=== PATIENT | female | born 1990 | race Caucasian/White ===

== ENCOUNTER 2016-03-28 17:09 | Emergency (ER) | payer OTHER, SELFPAY ==
[2016-03-28 18:25] LABS: BASO # 0.1 K/mm3 (0.0-0.2); BASO % 0.9 % (0.0-1.0); EOS # 0.1 K/mm3 (0.0-0.50); EOS % 1.2 % (0.0-3.0); LARGE UNSTAINED CELL # 0.1 K/mm3 (0.0-0.4); LARGE UNSTAINED CELL % 1.3 % (0.0-4.0); LYMPH % 20.2 % (24.0-44.0); MEAN CORPUSCULAR HEMOGLOBIN 26.4 pg (27.0-33.0); MEAN CORPUSCULAR HGB CONC 32.3 g/dl (32.0-36.5); MEAN CORPUSCULAR VOLUME 81.6 fl (80.0-96.0); MONO # 0.5 K/mm3 (0.0-0.8); NEUTROPHILS # 6.6 K/mm3 (1.8-7.7); NEUTROPHILS % 71.4 % (36.0-66.0); PLATELET COUNT, AUTOMATED 295 k/mm3 (150-450); RED CELL DISTRIBUTION WIDTH 15.1 % (11.5-14.5); WHITE BLOOD COUNT 9.2 K/mm3 (4.0-10.0)
[2016-03-28 18:44] LABS: ALBUMIN 4.1 GM/DL (3.2-5.2); ALBUMIN/GLOBULIN RATIO 1.03 (1.00-1.93); ALKALINE PHOSPHATASE 58 U/L (45-117); ALT/SGPT 17 U/L (12-78); AMYLASE 25 U/L (25-115); ANION GAP 9 MEQ/L (8-16); AST/SGOT 14 U/L (15-37); BILIRUBIN,DIRECT < 0.1 MG/DL (0.0-0.2); BILIRUBIN,TOTAL 0.2 MG/DL (0.2-1.0); BLOOD UREA NITROGEN 10 MG/DL (7-18); CALCIUM LEVEL 8.7 MG/DL (8.5-10.1); CARBON DIOXIDE LEVEL 27 MEQ/L (21-32); CHLORIDE LEVEL 108 MEQ/L (98-107); CREATININE FOR GFR 0.65 MG/DL (0.55-1.02); GLOMERULAR FILTRATION RATE > 60.0 (>60); GLUCOSE, FASTING 109 MG/DL (70-105); POTASSIUM SERUM 3.8 MEQ/L (3.5-5.1); SODIUM LEVEL 144 MEQ/L (136-145); TOTAL PROTEIN 8.1 GM/DL (6.4-8.2)
--- NOTE | 2016-03-28 19:00 | REPUSA ---
CLINICAL HISTORY: BILIARY COLIC TECHNIQUE: Realtime sonographic images were obtained in multiple projections. COMMENTS: The liver is of uniform echo texture without evidence of mass or defect. There is no intra or extrahe patic biliary ductal dilatation. The common bile duct measures up to 4 mm. The gallbladder isunderdis tended (patient ate at 4 4pm), but without evidence of calculi. The gallbladder wall is not thickened and there is no pericholecystic fluid. There is no abdominal ascites. The pancreas is not well seen. The right kidney measures 12.4 cm and is free of masses or hydronephro sis. The visualized portions of abdominal aorta present no abnormalities. IMPRESSION: No evidence of acute pathology.. Thank you for your kind referral of this patient.
--- NOTE | 2016-03-28 19:27 | EDDOCDS ---
Physician Documentation [facility] Name: Gisela Rice Age: 25 yrs Sex: Female : 1990 Arrival Date: 03/28/2016 Time: 17:09 Bed TR8 Private MD: Trino Goddard Disposition: 03/28/16 19:13 Discharged to Home/Self Care. Impression: Right upper quadrant abdominal tenderness. - Condition is Stable. - Discharge Instructions: Chest Wall Pain, [id number], Abdominal Pain, Adult, [id number]. - Prescriptions for etodolac 200 mg Oral Capsule - take 1 capsule by ORAL route 3 times per day; 30 capsule. - Medication Reconciliation, Local Pharmacy Hours form. - Follow up: Trino Goddard; When: 1 - 2 days; Reason: Further diagnostic work-up, Recheck today's complaints, Continuance of care. - Problem is new. - Symptoms are unchanged. Historical: - Allergies: Augmentin (Rash); - Home Meds: 1. none - PMHx: Heart Murmur; - PSHx: ; - Social history: Smoking status: Patient states was never smoker of tobacco. No barriers to communication noted, The patient speaks fluent Spanish. - Family history: Not pertinent. - : The pt / caregiver states he / she is not on anticoagulants. Home medication list is obtained from the patient. - Exposure Risk Screening:: None identified. 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 6 in. (167.64 cm) (R); 19:23 BP 114 / 62 LA Sitting (auto/reg); Pulse 84 MON; Resp 18 S; Temp 99.2(TE); Pulse Ox 98% cln on R/A; Pain 7/10; 17:11 Body Mass Index 28.25 (79.38 kg, 167.64 cm) dd6 MDM: 17:21 ECG WITH READING ER PHYS+CARDIAG ordered. EDMS 18:02 Amylase Ordered. EDMS 18:02 Basic Metabolic Profile Ordered. EDMS 18:02 CBC with Diff Ordered. EDMS 18:02 Lipase Ordered. EDMS 18:02 Liver Profile Ordered. EDMS 18:05 Gallbladder US Ordered. EDMS 18:05 NOTHING BY MOUTH+DIET ordered. EDMS 18:46 Basic Metabolic Profile Reviewed. btw 18:46 CBC with Diff Reviewed. btw 18:46 Liver Profile Reviewed. btw 18:46 Amylase Reviewed. btw 18:46 Lipase Reviewed. btw 19:26 Financial registration complete. [id number] Signatures: Dispatcher [employer] Kellen Arroyo,RN RN rs3 Imer Green PA PA Melany Pardo RN RN ms18 Bharti Botello, Reg Reg [id number] MTDD
--- NOTE | 2016-03-28 19:27 | EDDOCDS ---
Nurse's Notes [facility] Name: Gisela Rice Age: 25 yrs Sex: Female : 1990 Arrival Date: 03/28/2016 Time: 17:09 Bed TR8 Private MD: Trino Goddard Diagnosis: Right upper quadrant abdominal tenderness Presentation: 03/28 17:13 Presenting complaint: Patient states: Right side chest pain radiates to right flank for rs3 5 days. Left flank pain on and off . Dizziness mostly waking up and at the end of the day. H/o Heart murmur. has not taken any medication. worse with walking, deep breathing and relief with rest and lying on right side. Aspirin was not taken prior to arrival. Adult Sepsis Screening: The patient does not have new or worsening altered mentation. Patient's respiratory rate is less than 22. Systolic blood pressure is greater than 100. Patient has a qSOFA score of 0- Negative Sepsis Screen. Suicide/Homicide risk assessment- the patient denies having any suicidal and/or homicidal ideations and does not present with any other emotional, behavioral or mental health complaints. Status: Patient is not a coordinator of rehabilitation services or dependent. Transition of care: patient was not received from another setting of care. 17:13 Method Of Arrival: Walkin/Carried/Asstd rs3 17:13 Acuity: SRIDEVI Level 3 rs3 Triage Assessment: 17:15 General: Appears in no apparent distress. Pain: Location: chest. HIV screening NA for rs3 this visit Offered previously. Cardiovascular: Chest pain is described as Pain is 7 out of 10 on a pain scale. radiates to right to left episodes are continuous began 3 days ago. 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 none - PMHx: Heart Murmur; - PSHx: ; - Social history: Smoking status: Patient states was never smoker of tobacco. No barriers to communication noted, The patient speaks fluent Turkmen. - Family history: Not pertinent. - : The pt / caregiver states he / she is not on anticoagulants. Home medication list is obtained from the patient. - Exposure Risk Screening:: None identified. Screenin:24 Screening information is obtained from the patient. Fall risk: No risks identified. ms18 Assistance ADL's: requires no assistance with activities of daily living. Abuse/DV Screen: The patient / caregiver reports he/she is: not in a situation that causes fear, pain or injury. Nutritional screening: No deficits noted. Advance Directives: There is no living will. home support is adequate. Assessment: 18:08 General: Appears in no apparent distress, well nourished, well groomed, Behavior is jjr appropriate for age. Cardiovascular: Rhythm is regular Chest pain is located in right anterior chest wall radiates RUQ. Respiratory: No deficits noted. Derm: No deficits noted. 19:24 General: Appears in no apparent distress, comfortable, Behavior is appropriate for age, ms18 cooperative, fussy. Pain: Location: chest and left hand. Neurological: No deficits noted. Cardiovascular: Rhythm is regular. Respiratory: Airway is patent Respiratory effort is even, unlabored. Derm: Skin is pink, warm & dry. Vital Signs: 17:11 BP 135 / 82; Pulse 82; Resp 18 S; Temp 98.1(O); Pulse Ox 100% on R/A; Weight 79.38 kg dd6 (R); Height 5 ft. 6 in. (167.64 cm) (R); 19:23 BP 114 / 62 LA Sitting (auto/reg); Pulse 84 MON; Resp 18 S; Temp 99.2(TE); Pulse Ox 98% cln on R/A; Pain 7/10; 17:11 Body Mass Index 28.25 (79.38 kg, 167.64 cm) dd6 Vitals: 17:11 Log In Time: March 28, 2016 at 17:09. dd6 ED Course: 17:10 Patient visited by Linwood Coleman PCA. dd6 17:10 Patient moved to Waiting dd6 17:11 Trino Goddard is Private Physician. dd6 17:12 Patient moved to Pre RCE dd6 17:15 Triage Initiated rs3 17:21 Patient moved to PR2 / 26 ar3 17:28 EKG done. (by ED staff). Reviewed by Ana Perry MD. ar3 17:29 Patient visited by Chanell Snell PCA. ar3 17:29 Patient moved to Pre RCE ar3 17:29 Patient moved to Triage 1 ms18 17:57 Imer Green PA is PHCP. btw 17:57 Ana Perry MD is Attending Physician. btw 17:57 Patient visited by Imer Green PA. btw 18:08 Patient visited by Concepción Contreras RN. jjr 18:08 The patient / caregiver is instructed regarding the plan of care and ED course. Cardiac jjr monitoring not applicable on this patient. 18:17 Patient moved to TR1 ar3 18:17 Amylase Sent. ar3 18:17 Basic Metabolic Profile Sent. ar3 18:17 CBC with Diff Sent. ar3 18:17 Lipase Sent. ar3 18:17 Liver Profile Sent. ar3 19:11 Patient moved to PR1 / 25 cln 19:13 Trino Goddard is Referral Physician. btw 19:23 Patient visited by Melany Beavers PCA. cln 19:23 Patient moved to TR8 ms18 19:24 Patient has correct armband on for positive identification. Property :Personal ms18 belongings accompany Pt. 19:24 No IV's were initiated during this patient's visit. No procedures done that require ms18 assistance. 19:25 Gallbladder US Returned. EDMS Order Results: Lab Order: Amylase; SPEC'M 03/28/16 18:10 Test: AMYLASE; Value: 25; Range: 25-115; Units: U/L; Status: F Lab Order: Basic Metabolic Profile; SPEC'M 03/28/16 18:10 Test: GLUCOSE, FASTING; Value: 109; Range: 70-105; Abnormal: Above high normal; Units: MG/DL; Status: F Test: BLOOD UREA NITROGEN; Value: 10; Range: 7-18; Units: MG/DL; Status: F Test: CREATININE FOR GFR; Value: 0.65; Range: 0.55-1.02; Units: MG/DL; Status: F Test: GLOMERULAR FILTRATION RATE; Value: > 60.0; Range: >60; Status: F Test: SODIUM LEVEL; Value: 144; Range: 136-145; Units: MEQ/L; Status: F Test: POTASSIUM SERUM; Value: 3.8; Range: 3.5-5.1; Units: MEQ/L; Status: F Test: CHLORIDE LEVEL; Value: 108; Range: 98-107; Abnormal: Above high normal; Units: MEQ/L; Status: F Test: CARBON DIOXIDE LEVEL; Value: 27; Range: 21-32; Units: MEQ/L; Status: F Test: ANION GAP; Value: 9; Range: 8-16; Units: MEQ/L; Status: F Test: CALCIUM LEVEL; Value: 8.7; Range: 8.5-10.1; Units: MG/DL; Status: F Test Note: ; Units are mL/min/1.73 m2 Chronic Kidney Disease Staging per NKF: Stage I & II GFR >=60 Normal to Mildly Decreased Stage III GFR 30-59 Moderately Decreased Stage IV GFR 15-29 Severely Decreased Stage V GFR <15 Very Little GFR Left ESRD GFR <15 on PROJECT FACILITATOR Lab Order: CBC with Diff; SPEC'M 03/28/16 18:10 Test: WHITE BLOOD COUNT; Value: 9.2; Range: 4.0-10.0; Units: K/mm3; Status: F Test: RED BLOOD COUNT; Value: 4.08; Range: 4.00-5.40; Units: M/mm3; Status: F Test: HEMOGLOBIN; Value: 10.8; Range: 12.0-16.0; Abnormal: Below low normal; Units: g/dl; Status: F Test: HEMATOCRIT; Value: 33.3; Range: 36.0-47.0; Abnormal: Below low normal; Units: %; Status: F Test: MEAN CORPUSCULAR VOLUME; Value: 81.6; Range: 80.0-96.0; Units: fl; Status: F Test: MEAN CORPUSCULAR HEMOGLOBIN; Value: 26.4; Range: 27.0-33.0; Abnormal: Below low normal; Units: pg; Status: F Test: MEAN CORPUSCULAR HGB CONC; Value: 32.3; Range: 32.0-36.5; Units: g/dl; Status: F Test: RED CELL DISTRIBUTION WIDTH; Value: 15.1; Range: 11.5-14.5; Abnormal: Above high normal; Units: %; Status: F Test: PLATELET COUNT, AUTOMATED; Value: 295; Range: 150-450; Units: k/mm3; Status: F Test: NEUTROPHILS %; Value: 71.4; Range: 36.0-66.0; Abnormal: Above high normal; Units: %; Status: F Test: LYMPH %; Value: 20.2; Range: 24.0-44.0; Abnormal: Below low normal; Units: %; Status: F Test: MONO %; Value: 5.0; Range: 0.0-5.0; Units: %; Status: F Test: EOS %; Value: 1.2; Range: 0.0-3.0; Units: %; Status: F Test: BASO %; Value: 0.9; Range: 0.0-1.0; Units: %; Status: F Test: LARGE UNSTAINED CELL %; Value: 1.3; Range: 0.0-4.0; Units: %; Status: F Test: NEUTROPHILS #; Value: 6.6; Range: 1.8-7.7; Units: K/mm3; Status: F Test: LYMPH #; Value: 2.0; Range: 1.5-6.5; Units: K/mm3; Status: F Test: MONO #; Value: 0.5; Range: 0.0-0.8; Units: K/mm3; Status: F Test: EOS #; Value: 0.1; Range: 0.0-0.50; Units: K/mm3; Status: F Test: BASO #; Value: 0.1; Range: 0.0-0.2; Units: K/mm3; Status: F Test: LARGE UNSTAINED CELL #; Value: 0.1; Range: 0.0-0.4; Units: K/mm3; Status: F Lab Order: Lipase; SPEC'M 03/28/16 18:10 Test: LIPASE; Value: 157; Range: 73-393; Units: U/L; Status: F Lab Order: Liver Profile; SPEC'M 03/28/16 18:10 Test: AST/SGOT; Value: 14; Range: 15-37; Abnormal: Below low normal; Units: U/L; Status: F Test: ALT/SGPT; Value: 17; Range: 12-78; Units: U/L; Status: F Test: ALKALINE PHOSPHATASE; Value: 58; Range: 45-117; Units: U/L; Status: F Test: BILIRUBIN,TOTAL; Value: 0.2; Range: 0.2-1.0; Units: MG/DL; Status: F Test: BILIRUBIN,DIRECT; Value: < 0.1; Range: 0.0-0.2; Units: MG/DL; Status: F Test: TOTAL PROTEIN; Value: 8.1; Range: 6.4-8.2; Units: GM/DL; Status: F Test: ALBUMIN; Value: 4.1; Range: 3.2-5.2; Units: GM/DL; Status: F Test: ALBUMIN/GLOBULIN RATIO; Value: 1.03; Range: 1.00-1.93; Status: F Radiology Order: Gallbladder US Test: Gallbladder US REASON FOR EXAMINATION: Biliary Colic; ; CLINICAL HISTORY: BILIARY COLIC; TECHNIQUE: Realtime sonographic images were obtained in multiple projections.; COMMENTS:; The liver is of uniform echo texture without evidence of mass or defect. There is no intra or extrahe; patic biliary ductal dilatation. The common bile duct measures up to 4 mm. The gallbladder isunderdis; tended (patient ate at 4 4pm), but without evidence of calculi. The gallbladder wall is not thickened; and there is no pericholecystic fluid. There is no abdominal ascites.; The pancreas is not well seen. The right kidney measures 12.4 cm and is free of masses or hydronephro; sis.; The visualized portions of abdominal aorta present no abnormalities.; IMPRESSION:; No evidence of acute pathology..; Thank you for your kind referral of this patient.; ; Outcome: 19:13 Discharge ordered by Provider. btw 19:24 Discharge Assessment: Patient awake, alert and oriented x 3. No cognitive and/or ms18 functional deficits noted. Patient verbalized understanding of disposition instructions. patient administered narcotics - no. The following High Risk Discharge criteria are identified: None. Discharged to home ambulatory, with friend. Condition: good Condition: stable Condition: improved. Discharge instructions given to patient, Instructed on discharge instructions, follow up and referral plans. medication usage, Demonstrated understanding of instructions, medications, Pt was receptive of discharge instructions/ teaching. Prescriptions given X 1. No special radiology studies were completed. 19:26 Patient left the ED. ms18 Signatures: Dispatcher [employer] EDMS Concepción Contreras, KANDIS RN Linwood Quiros, VENEER STAPLER VENEER STAPLER dd6 Kellen MorenoRN RN rs3 Chanell Snell, VENEER STAPLER VENEER STAPLER ar3 Imer Green PA PA btw Melany Giron RN RN ms18 Beavers, Melany, VENEER STAPLER VENEER STAPLER cln Corrections: (The following items were deleted from the chart) 17: 17:13 Presenting complaint: Patient states: Right side chest pain radiates to right rs3 flank for 5 days. has not taken any medication. worse with walking, deep breathing and relief with rest and lying on right side rs3 17: 17:13 Acuity: SRIDEVI Level 4 rs3 rs3 MTDD
--- NOTE | 2016-03-29 20:42 | ECGEPIP ---
Stationary ECG Study [facility] - ED Test Date: 2016-03-28 Pat Name: JEFFERY KHAN Department: Room: - Gender: F Restrooms Or Lounges Maid: toney : 1990 Requested By: YANELY Song Order Number: [id number] Reading MD: Kathy Cortés Measurements Intervals [place] Rate: 67 P: 42 NH: 180 QRS: 56 QRSD: 104 T: 16 QT: 387 QTc: 409 Interpretive Statements SINUS RHYTHM NO PRIOR FOR COMPARISON Electronically Signed On 03-29-2016 20:42:29 EST by Kathy Cortés
--- NOTE | 2016-03-30 20:27 | EDDOCDS ---
Nurse's Notes [facility], [place] Name: Gisela Khan Age: 25 yrs Sex: Female : 1990 Arrival Date: 03/28/2016 Time: 17:09 Bed TR8 Private MD: Trino Goddard Diagnosis: Right upper quadrant abdominal tenderness Presentation: 03/28 17:13 Presenting complaint: Patient states: Right side chest pain radiates to right flank for rs3 5 days. Left flank pain on and off . Dizziness mostly waking up and at the end of the day. H/o Heart murmur. has not taken any medication. worse with walking, deep breathing and relief with rest and lying on right side. Aspirin was not taken prior to arrival. Adult Sepsis Screening: The patient does not have new or worsening altered mentation. Patient's respiratory rate is less than 22. Systolic blood pressure is greater than 100. Patient has a qSOFA score of 0- Negative Sepsis Screen. Suicide/Homicide risk assessment- the patient denies having any suicidal and/or homicidal ideations and does not present with any other emotional, behavioral or mental health complaints. 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 Transition of care: patient was not received from another setting of care. 17:13 Method Of Arrival: Walkin/Carried/Asstd rs3 17:13 Acuity: SRIDEVI Level 3 rs3 Triage Assessment: 17:15 General: Appears in no apparent distress. Pain: Location: chest. HIV screening NA for rs3 this visit Offered previously. Cardiovascular: Chest pain is described as Pain is 7 out of 10 on a pain scale. radiates to right to left episodes are continuous began 3 days ago. 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 none - PMHx: Heart Murmur; - PSHx: ; - Social history: Smoking status: Patient states was never smoker of tobacco. No barriers to communication noted, The patient speaks fluent Thai. - Family history: Not pertinent. - : The pt / caregiver states he / she is not on anticoagulants. Home medication list is obtained from the patient. - Exposure Risk Screening:: None identified. Screenin:24 Screening information is obtained from the patient. Fall risk: No risks identified. ms18 Assistance ADL's: requires no assistance with activities of daily living. Abuse/DV Screen: The patient / caregiver reports he/she is: not in a situation that causes fear, pain or injury. Nutritional screening: No deficits noted. Advance Directives: There is no living will. home support is adequate. Assessment: 18:08 General: Appears in no apparent distress, well nourished, well groomed, Behavior is jjr appropriate for age. Cardiovascular: Rhythm is regular Chest pain is located in right anterior chest wall radiates RUQ. Respiratory: No deficits noted. Derm: No deficits noted. 19:24 General: Appears in no apparent distress, comfortable, Behavior is appropriate for age, ms18 cooperative, fussy. Pain: Location: chest and left hand. Neurological: No deficits noted. Cardiovascular: Rhythm is regular. Respiratory: Airway is patent Respiratory effort is even, unlabored. Derm: Skin is pink, warm & dry. Vital Signs: 17:11 BP 135 / 82; Pulse 82; Resp 18 S; Temp 98.1(O); Pulse Ox 100% on R/A; Weight 79.38 kg dd6 (R); Height 5 ft. 6 in. (167.64 cm) (R); 19:23 BP 114 / 62 LA Sitting (auto/reg); Pulse 84 MON; Resp 18 S; Temp 99.2(TE); Pulse Ox 98% cln on R/A; Pain 7/10; 17:11 Body Mass Index 28.25 (79.38 kg, 167.64 cm) dd6 Vitals: 17:11 Log In Time: March 28, 2016 at 17:09. dd6 ED Course: 17:10 Patient visited by Linwood Coleman PCA. dd6 17:10 Patient moved to Waiting dd6 17:11 Trino Goddard is Private Physician. dd6 17:12 Patient moved to Pre RCE dd6 17:15 Triage Initiated rs3 17:21 Patient moved to PR2 / 26 ar3 17:28 EKG done. (by ED staff). Reviewed by Ana Perry MD. ar3 17:29 Patient visited by Chanell Snell PCA. ar3 17:29 Patient moved to Pre RCE ar3 17:29 Patient moved to Triage 1 ms18 17:57 Imer Green PA is PHCP. btw 17:57 Ana Perry MD is Attending Physician. btw 17:57 Patient visited by Imer Green PA. btw 18:08 Patient visited by Concepción Contreras RN. jjr 18:08 The patient / caregiver is instructed regarding the plan of care and ED course. Cardiac jjr monitoring not applicable on this patient. 18:17 Patient moved to TR1 ar3 18:17 Amylase Sent. ar3 18:17 Basic Metabolic Profile Sent. ar3 18:17 CBC with Diff Sent. ar3 18:17 Lipase Sent. ar3 18:17 Liver Profile Sent. ar3 19:11 Patient moved to PR1 / 25 cln 19:13 Trino Goddard is Referral Physician. btw 19:23 Patient visited by Melany Beavers PCA. cln 19:23 Patient moved to TR8 ms18 19:24 Patient has correct armband on for positive identification. Property :Personal ms18 belongings accompany Pt. 19:24 No IV's were initiated during this patient's visit. No procedures done that require ms18 assistance. 19:25 Gallbladder US Returned. EDMS 19:27 [facility] Payment Agreement was scanned into [employer] and attached to record. ks16 03/29 12:22 T-Sheet-- Draft Copy was scanned into Sayah and attached to record. gb 12:23 ECG/EKG was scanned into [employer] and attached to record. gb 20:49 EKG-ADULT Returned. EDMS Order Results: Lab Order: Amylase; SPEC'M 03/28/16 18:10 Test: AMYLASE; Value: 25; Range: 25-115; Units: U/L; Status: F Lab Order: Basic Metabolic Profile; SPEC'M 03/28/16 18:10 Test: GLUCOSE, FASTING; Value: 109; Range: 70-105; Abnormal: Above high normal; Units: MG/DL; Status: F Test: BLOOD UREA NITROGEN; Value: 10; Range: 7-18; Units: MG/DL; Status: F Test: CREATININE FOR GFR; Value: 0.65; Range: 0.55-1.02; Units: MG/DL; Status: F Test: GLOMERULAR FILTRATION RATE; Value: > 60.0; Range: >60; Status: F Test: SODIUM LEVEL; Value: 144; Range: 136-145; Units: MEQ/L; Status: F Test: POTASSIUM SERUM; Value: 3.8; Range: 3.5-5.1; Units: MEQ/L; Status: F Test: CHLORIDE LEVEL; Value: 108; Range: 98-107; Abnormal: Above high normal; Units: MEQ/L; Status: F Test: CARBON DIOXIDE LEVEL; Value: 27; Range: 21-32; Units: MEQ/L; Status: F Test: ANION GAP; Value: 9; Range: 8-16; Units: MEQ/L; Status: F Test: CALCIUM LEVEL; Value: 8.7; Range: 8.5-10.1; Units: MG/DL; Status: F Test Note: ; Units are mL/min/1.73 m2 Chronic Kidney Disease Staging per NKF: Stage I & II GFR >=60 Normal to Mildly Decreased Stage III GFR 30-59 Moderately Decreased Stage IV GFR 15-29 Severely Decreased Stage V GFR <15 Very Little GFR Left ESRD GFR <15 on LEGAL FILE CLERK Lab Order: CBC with Diff; SPEC'M 03/28/16 18:10 Test: WHITE BLOOD COUNT; Value: 9.2; Range: 4.0-10.0; Units: K/mm3; Status: F Test: RED BLOOD COUNT; Value: 4.08; Range: 4.00-5.40; Units: M/mm3; Status: F Test: HEMOGLOBIN; Value: 10.8; Range: 12.0-16.0; Abnormal: Below low normal; Units: g/dl; Status: F Test: HEMATOCRIT; Value: 33.3; Range: 36.0-47.0; Abnormal: Below low normal; Units: %; Status: F Test: MEAN CORPUSCULAR VOLUME; Value: 81.6; Range: 80.0-96.0; Units: fl; Status: F Test: MEAN CORPUSCULAR HEMOGLOBIN; Value: 26.4; Range: 27.0-33.0; Abnormal: Below low normal; Units: pg; Status: F Test: MEAN CORPUSCULAR HGB CONC; Value: 32.3; Range: 32.0-36.5; Units: g/dl; Status: F Test: RED CELL DISTRIBUTION WIDTH; Value: 15.1; Range: 11.5-14.5; Abnormal: Above high normal; Units: %; Status: F Test: PLATELET COUNT, AUTOMATED; Value: 295; Range: 150-450; Units: k/mm3; Status: F Test: NEUTROPHILS %; Value: 71.4; Range: 36.0-66.0; Abnormal: Above high normal; Units: %; Status: F Test: LYMPH %; Value: 20.2; Range: 24.0-44.0; Abnormal: Below low normal; Units: %; Status: F Test: MONO %; Value: 5.0; Range: 0.0-5.0; Units: %; Status: F Test: EOS %; Value: 1.2; Range: 0.0-3.0; Units: %; Status: F Test: BASO %; Value: 0.9; Range: 0.0-1.0; Units: %; Status: F Test: LARGE UNSTAINED CELL %; Value: 1.3; Range: 0.0-4.0; Units: %; Status: F Test: NEUTROPHILS #; Value: 6.6; Range: 1.8-7.7; Units: K/mm3; Status: F Test: LYMPH #; Value: 2.0; Range: 1.5-6.5; Units: K/mm3; Status: F Test: MONO #; Value: 0.5; Range: 0.0-0.8; Units: K/mm3; Status: F Test: EOS #; Value: 0.1; Range: 0.0-0.50; Units: K/mm3; Status: F Test: BASO #; Value: 0.1; Range: 0.0-0.2; Units: K/mm3; Status: F Test: LARGE UNSTAINED CELL #; Value: 0.1; Range: 0.0-0.4; Units: K/mm3; Status: F Lab Order: Lipase; SPEC'M 03/28/16 18:10 Test: LIPASE; Value: 157; Range: 73-393; Units: U/L; Status: F Lab Order: Liver Profile; SPEC'M 03/28/16 18:10 Test: AST/SGOT; Value: 14; Range: 15-37; Abnormal: Below low normal; Units: U/L; Status: F Test: ALT/SGPT; Value: 17; Range: 12-78; Units: U/L; Status: F Test: ALKALINE PHOSPHATASE; Value: 58; Range: 45-117; Units: U/L; Status: F Test: BILIRUBIN,TOTAL; Value: 0.2; Range: 0.2-1.0; Units: MG/DL; Status: F Test: BILIRUBIN,DIRECT; Value: < 0.1; Range: 0.0-0.2; Units: MG/DL; Status: F Test: TOTAL PROTEIN; Value: 8.1; Range: 6.4-8.2; Units: GM/DL; Status: F Test: ALBUMIN; Value: 4.1; Range: 3.2-5.2; Units: GM/DL; Status: F Test: ALBUMIN/GLOBULIN RATIO; Value: 1.03; Range: 1.00-1.93; Status: F Radiology Order: EKG-ADULT Test: EKG-ADULT REASON FOR EXAMINATION: Chest Pain; Stationary ECG Study; [facility] - ED; ; Test Date: 2016-03-28; Pat Name: GISELA KHAN Department:; Room: -; Gender: F 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; : 1990 Requested By: ANA Song; Order Number: [id number] Reading MD: Kathy Cortés; Measurements; Intervals [place]; Rate: 67 P: 42; HI: 180 QRS: 56; QRSD: 104 T: 16; QT: 387; QTc: 409; Interpretive Statements; SINUS RHYTHM; NO PRIOR FOR COMPARISON; Electronically Signed On 03-29-2016 20:42:29 EST by Kathy Cortés; Radiology Order: Gallbladder US Test: Gallbladder US REASON FOR EXAMINATION: Biliary Colic; ; CLINICAL HISTORY: BILIARY COLIC; TECHNIQUE: Realtime sonographic images were obtained in multiple projections.; COMMENTS:; The liver is of uniform echo texture without evidence of mass or defect. There is no intra or extrahe; patic biliary ductal dilatation. The common bile duct measures up to 4 mm. The gallbladder isunderdis; tended (patient ate at 4 4pm), but without evidence of calculi. The gallbladder wall is not thickened; and there is no pericholecystic fluid. There is no abdominal ascites.; The pancreas is not well seen. The right kidney measures 12.4 cm and is free of masses or hydronephro; sis.; The visualized portions of abdominal aorta present no abnormalities.; IMPRESSION:; No evidence of acute pathology..; Thank you for your kind referral of this patient.; ; Outcome: 03/28 19:13 Discharge ordered by Provider. bt 19:24 Discharge Assessment: Patient awake, alert and oriented x 3. No cognitive and/or ms18 functional deficits noted. Patient verbalized understanding of disposition instructions. patient administered narcotics - no. The following High Risk Discharge criteria are identified: None. Discharged to home ambulatory, with friend. Condition: good Condition: stable Condition: improved. Discharge instructions given to patient, Instructed on discharge instructions, follow up and referral plans. medication usage, Demonstrated understanding of instructions, medications, Pt was receptive of discharge instructions/ teaching. Prescriptions given X 1. No special radiology studies were completed. 19:26 Patient left the ED. ms18 Signatures: Dispatcher [employer] EDMS Magnolia Yuan, Reg Reg gb Concepción Contreras RN RN Linwood Quiros, FRANKFURTER INSPECTOR FRANKFURTER INSPECTOR dd6 Kellen Moreno RN RN rs3 Chanell Snell, FRANKFURTER INSPECTOR FRANKFURTER INSPECTOR ar3 Imer Green PA PA btw Melany Giron RN RN ms18 Bharti Botello, Reg Reg ks16 Melany Beavers, FRANKFURTER INSPECTOR FRANKFURTER INSPECTOR cln Corrections: (The following items were deleted from the chart) 17:20 17:13 Presenting complaint: Patient states: Right side chest pain radiates to right rs3 flank for 5 days. has not taken any medication. worse with walking, deep breathing and relief with rest and lying on right side rs3 17:22 17:13 Acuity: SRIDEVI Level 4 rs3 rs3 Chart Complete MTDD
--- NOTE | 2016-03-30 20:27 | EDDOCDS ---
Physician Documentation [facility] Name: Gisela iRce Age: 25 yrs Sex: Female : 1990 Arrival Date: 03/28/2016 Time: 17:09 Bed TR8 Private MD: Trino Goddard Disposition: 03/28/16 19:13 Discharged to Home/Self Care. Impression: Right upper quadrant abdominal tenderness. - Condition is Stable. - Discharge Instructions: Chest Wall Pain, Bkca-[id number], Abdominal Pain, Adult, [id number]. - Prescriptions for etodolac 200 mg Oral Capsule - take 1 capsule by ORAL route 3 times per day; 30 capsule. - Medication Reconciliation, Local Pharmacy Hours form. - Follow up: Trino Goddard; When: 1 - 2 days; Reason: Further diagnostic work-up, Recheck today's complaints, Continuance of care. - Problem is new. - Symptoms are unchanged. Historical: - Allergies: Augmentin (Rash); - Home Meds: 1. none - PMHx: Heart Murmur; - PSHx: ; - Social history: Smoking status: Patient states was never smoker of tobacco. No barriers to communication noted, The patient speaks fluent Italian. - Family history: Not pertinent. - : The pt / caregiver states he / she is not on anticoagulants. Home medication list is obtained from the patient. - Exposure Risk Screening:: None identified. 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 6 in. (167.64 cm) (R); 19:23 BP 114 / 62 LA Sitting (auto/reg); Pulse 84 MON; Resp 18 S; Temp 99.2(TE); Pulse Ox 98% cln on R/A; Pain 7/10; 17:11 Body Mass Index 28.25 (79.38 kg, 167.64 cm) dd6 MDM: 17:21 ECG WITH READING ER PHYS+CARDIAG ordered. EDMS 18:02 Amylase Ordered. EDMS 18:02 Basic Metabolic Profile Ordered. EDMS 18:02 CBC with Diff Ordered. EDMS 18:02 Lipase Ordered. EDMS 18:02 Liver Profile Ordered. EDMS 18:05 Gallbladder US Ordered. EDMS 18:05 NOTHING BY MOUTH+DIET ordered. EDMS 18:46 Basic Metabolic Profile Reviewed. btw 18:46 CBC with Diff Reviewed. btw 18:46 Liver Profile Reviewed. btw 18:46 Amylase Reviewed. btw 18:46 Lipase Reviewed. btw 19:26 Financial registration complete. ks: [facility] [place] was scanned into [employer] and attached to record. ks16 03/29 12:22 T-Sheet-- Draft Copy was scanned into MEDHOST and attached to record. gb 12:23 ECG/EKG was scanned into [employer] and attached to record. gb Signatures: Dispatcher [employer] EDMagnolia Buckner, Reg Reg gb Kellen Moreno RN RN rs3 Imer Green PA PA btw Melany Giron RN RN ms18 Bharti Botello, Reg Reg ks16 The chart was reviewed and I authenticate all verbal orders and agree with the evaluation and treatment provided.Attachments: 03/28 19:27 [facility] [place] Agreement 16 03/29 12:22 T-Sheet-- Draft Copy gb 12:23 ECG/EKG gb Chart Complete MTDD
--- NOTE | 2016-03-30 20:27 | EDDOCDS ---
Physician Documentation [facility] Name: Gisela Rice Age: 25 yrs Sex: Female : 1990 Arrival Date: 03/28/2016 Time: 17:09 Bed TR8 Private MD: Trino Goddard Disposition: 03/28/16 19:13 Discharged to Home/Self Care. Impression: Right upper quadrant abdominal tenderness. - Condition is Stable. - Discharge Instructions: Chest Wall Pain, Dbhq-ok-Ipwa, Abdominal Pain, Adult, Nqhn-xt-Pmuw. - Prescriptions for etodolac 200 mg Oral Capsule - take 1 capsule by ORAL route 3 times per day; 30 capsule. - Medication Reconciliation, Local Pharmacy Hours form. - Follow up: Trino Goddard; When: 1 - 2 days; Reason: Further diagnostic work-up, Recheck today's complaints, Continuance of care. - Problem is new. - Symptoms are unchanged. Historical: - Allergies: Augmentin (Rash); - Home Meds: 1. none - PMHx: Heart Murmur; - PSHx: ; - Social history: Smoking status: Patient states was never smoker of tobacco. No barriers to communication noted, The patient speaks fluent Faroese. - Family history: Not pertinent. - : The pt / caregiver states he / she is not on anticoagulants. Home medication list is obtained from the patient. - Exposure Risk Screening:: None identified. ENGINE REPAIRER PRODUCTION: 03/28 17:15 LMP 03/14/2016 rs3 Vital Signs: 17:11 BP 135 / 82; Pulse 82; Resp 18 S; Temp 98.1(O); Pulse Ox 100% on R/A; Weight 79.38 kg / dd6 175 lbs (R); Height 5 ft. 6 in. (167.64 cm) (R); 19:23 BP 114 / 62 LA Sitting (auto/reg); Pulse 84 MON; Resp 18 S; Temp 99.2(TE); Pulse Ox 98% cln on R/A; Pain 7/10; 17:11 Body Mass Index 28.25 (79.38 kg, 167.64 cm) dd6 MDM: 17:21 ECG WITH READING ER PHYS+CARDIAG ordered. EDMS 18:02 Amylase Ordered. EDMS 18:02 Basic Metabolic Profile Ordered. EDMS 18:02 CBC with Diff Ordered. EDMS 18:02 Lipase Ordered. EDMS 18:02 Liver Profile Ordered. EDMS 18:05 Gallbladder US Ordered. EDMS 18:05 NOTHING BY MOUTH+DIET ordered. EDMS 18:46 Basic Metabolic Profile Reviewed. btw 18:46 CBC with Diff Reviewed. btw 18:46 Liver Profile Reviewed. btw 18:46 Amylase Reviewed. btw 18:46 Lipase Reviewed. btw 19:26 Financial registration complete. ks: [facility] Payment Agreement was scanned into MEDHOST and attached to record. ks16 03/29 12:22 T-Sheet-- Draft Copy was scanned into MEDHOST and attached to record. gb 12:23 ECG/EKG was scanned into MEDHOST and attached to record. gb Signatures: Dispatcher [employer] EDMagnolia Buckner, Reg Reg gb Kellen Moreno RN RN rs3 Imer Green PA PA btw Melany Giron RN RN ms18 Bharti Botello, Reg Reg ks16 The chart was reviewed and I authenticate all verbal orders and agree with the evaluation and treatment provided.Attachments: 03/28 19:27 [facility] Payment Agreement 16 03/29 12:22 T-Sheet-- Draft Copy gb 12:23 ECG/EKG gb Chart Complete MTDD
== END 2016-03-28 19:26 | disposition home or self-care (01) ==
LOC: M ED 17:09
DX: R10.11 Right upper quadrant pain (principal); F17.210 Nicotine dependence, cigarettes, uncomplicated; Z88.1 Allergy status to other antibiotic agents

== ENCOUNTER 2016-08-13 18:37 | Emergency (ER) | payer MEDICAID, OTHER ==
[~2016-08-13] VITALS: Ht 170.2 cm; Wt 91.7 kg
[2016-08-13] MEDS ORDERED: IBUP600T26 PO (21:16)
[2016-08-13 21:26] VITALS: BP 115/70
--- NOTE | 2016-08-13 21:30 | REP ---
Left ankle series: Four views. History: Left ankle pain. Findings: Ankle mortise is intact. There is plantar calcaneal spurring. No fracture is seen. Impression: Plantar heel spur. No fracture or other acute bony abnormality. Signed by Abdulkadir Medrano MD 08/14/2016 07:43 A
== END 2016-08-13 21:38 | disposition home or self-care (01) ==
LOC: M ED 21:01
DX: S93.402A Sprain of unspecified ligament of left ankle, initial encounter (principal); W18.40XA Slipping, tripping and stumbling without falling, unspecified, initial encounter; Y92.9 Unspecified place or not applicable; Y93.9 Activity, unspecified; Y99.0 Civilian activity done for income or pay; M77.32 Calcaneal spur, left foot; Z88.1 Allergy status to other antibiotic agents; Z88.8 Allergy status to other drugs, medicaments and biological substances

== ENCOUNTER 2016-09-24 10:31 | Emergency (ER) | payer OTHER ==
[~2016-09-24] VITALS: Ht 170.2 cm; Wt 87.3 kg
[~2016-09-24 10:31] MED LIST: IBUP-1022 PO
[2016-09-24] MEDS ORDERED: KETOROLAC 30 MG/ML VIAL (J1885) IV ONE (11:00)
[2016-09-24] MEDS ORDERED: NS 1,000 ML IV ONE (11:00)
[2016-09-24] MEDS ORDERED: ONDANSETRON 4MG/2ML VIAL (J2405) IV ONE (11:00)
--- NOTE | 2016-09-24 13:29 | REP ---
CT ABDOMEN AND PELVIS WITHOUT CONTRAST: CT abdomen and pelvis performed without oral or IV contrast. Sagittal and coronal and reconstruction images are performed. Comparison made with prior study of 04/26/2015. Visualized lung bases are clear. Liver, spleen, adrenals, pancreas and kidneys are grossly unremarkable. No renal or ureteral calculus is seen and there is no hydroureteronephrosis. There is no abnormal aortic aneurysm. I see no adenopathy. There is no free air or free fluid. There is no evidence of appendicitis. No pelvic mass is seen. Urinary bladder is minimally distended and grossly unremarkable. IMPRESSION: Essentially negative noncontrast CT abdomen and pelvis. No renal or ureteral calculus. No hydroureteronephrosis. No evidence of appendicitis. Signed by Keegan Marroquin MD 09/24/2016 03:31 P
[2016-09-24 13:56] LABS: ALBUMIN 3.9 GM/DL (3.2-5.2); ALBUMIN/GLOBULIN RATIO 0.89 (1.00-1.93); ALKALINE PHOSPHATASE 56 U/L (45-117); ALT/SGPT 14 U/L (12-78); ANION GAP 6 MEQ/L (8-16); AST/SGOT 7 U/L (15-37); BILIRUBIN,DIRECT < 0.1 MG/DL (0.0-0.2); BILIRUBIN,TOTAL 0.2 MG/DL (0.2-1.0); BLOOD UREA NITROGEN 9 MG/DL (7-18); CALCIUM LEVEL 8.6 MG/DL (8.5-10.1); CARBON DIOXIDE LEVEL 26 MEQ/L (21-32); CHLORIDE LEVEL 109 MEQ/L (98-107); CREATININE FOR GFR 0.64 MG/DL (0.55-1.02); GLOMERULAR FILTRATION RATE > 60.0 (>60); GLUCOSE, FASTING 85 MG/DL (70-105); POTASSIUM SERUM 3.9 MEQ/L (3.5-5.1); SODIUM LEVEL 141 MEQ/L (136-145); TOTAL PROTEIN 8.3 GM/DL (6.4-8.2)
[2016-09-24 13:58] LABS: BASO % 0.4 % (0.0-1.0); EOS # 0.1 K/mm3 (0.0-0.50); EOS % 0.6 % (0.0-3.0); LARGE UNSTAINED CELL # 0.3 K/mm3 (0.0-0.4); LARGE UNSTAINED CELL % 2.3 % (0.0-4.0); LYMPH # 1.6 K/mm3 (1.5-6.5); LYMPH % 14.2 % (24.0-44.0); MEAN CORPUSCULAR HEMOGLOBIN 23.6 pg (27.0-33.0); MEAN CORPUSCULAR VOLUME 78.5 fl (80.0-96.0); MONO # 0.5 K/mm3 (0.0-0.8); MONO % 4.1 % (0.0-5.0); NEUTROPHILS # 8.7 K/mm3 (1.8-7.7); NEUTROPHILS % 78.4 % (36.0-66.0); PLATELET COUNT, AUTOMATED 244 k/mm3 (150-450); RED CELL DISTRIBUTION WIDTH 15.1 % (11.5-14.5); WHITE BLOOD COUNT 11.1 K/mm3 (4.0-10.0)
[2016-09-24 14:17] LABS: ADD MORPHOLOGY? YES
[2016-09-24 14:40] LABS: ANISOCYTOSIS 1+; HYPOCHROMASIA 2+; OVALOCYTES 1+
[2016-09-24] MEDS ORDERED: ULTR50TA8 PO (14:59)
[2016-09-24] MEDS ORDERED: CIPR-249 PO (14:59)
[2016-09-24 15:07] VITALS: BP 107/59
== END 2016-09-24 15:09 | disposition home or self-care (01) ==
LOC: M ED 10:31
DX: N30.00 Acute cystitis without hematuria (principal); Z87.442 Personal history of urinary calculi; Z88.0 Allergy status to penicillin
CPT/HCPCS: 36415; 74176; 80048; 80076; 81001; 81025; 83690; 85025; 87088; 87186; 96360; 96374; 96375; 99284; J1885; J2405

== ENCOUNTER 2016-10-14 14:40 | Emergency (ER) | payer OTHER ==
[~2016-10-14] VITALS: Ht 170.2 cm; Wt 86.3 kg
[~2016-10-14 14:40] MED LIST changes: +CIPR-249 PO; +ULTR50TA8 PO
[2016-10-14 14:41] VITALS: BP 122/63
[2016-10-14 15:58] LABS: CONTROL LINE UCG INT CTR LINE PRESENT
[2016-10-14] MEDS ORDERED: NS 1,000 ML IV ONE ×2 (16:30→18:00)
[2016-10-14] MEDS ORDERED: KETOROLAC 30 MG/ML VIAL (J1885) IV ONE ×2 (16:30→18:30)
[2016-10-14] MEDS ORDERED: ONDANSETRON 4MG/2ML VIAL (J2405) IV ONE ×2 (16:30→18:00)
[2016-10-14] MEDS ORDERED: MORPHINE 4 MG/ML 1ML SYRINGE IV ONE ×2 (18:00→20:00)
[2016-10-14] MEDS ORDERED: ONDANSETRON 4 MG ORAL DISINTEGRATING TAB (S0181) PO ONE (18:00)
[2016-10-14] MEDS ORDERED: MORPHINE 4 MG/ML 1ML SYRINGE IM ONE (18:00)
[2016-10-14 18:26] LABS: BASO % 0.3 % (0.0-1.0); EOS % 0.1 % (0.0-3.0); LARGE UNSTAINED CELL # 0.2 K/mm3 (0.0-0.4); LARGE UNSTAINED CELL % 1.5 % (0.0-4.0); LYMPH # 1.3 K/mm3 (1.5-6.5); LYMPH % 10.9 % (24.0-44.0); MEAN CORPUSCULAR HEMOGLOBIN 23.1 pg (27.0-33.0); MEAN CORPUSCULAR HGB CONC 30.1 g/dl (32.0-36.5); MEAN CORPUSCULAR VOLUME 76.8 fl (80.0-96.0); MONO # 0.7 K/mm3 (0.0-0.8); MONO % 6.2 % (0.0-5.0); NEUTROPHILS # 8.6 K/mm3 (1.8-7.7); NEUTROPHILS % 81.1 % (36.0-66.0); PLATELET COUNT, AUTOMATED 292 k/mm3 (150-450); RED CELL DISTRIBUTION WIDTH 15.5 % (11.5-14.5); WHITE BLOOD COUNT 10.6 K/mm3 (4.0-10.0)
[2016-10-14 18:41] LABS: ALBUMIN/GLOBULIN RATIO 1.03 (1.00-1.93); ALKALINE PHOSPHATASE 52 U/L (45-117); ALT/SGPT 14 U/L (12-78); AMYLASE 16 U/L (25-115); ANION GAP 9 MEQ/L (8-16); AST/SGOT 6 U/L (15-37); BILIRUBIN,DIRECT 0.1 MG/DL (0.0-0.2); BILIRUBIN,TOTAL 0.5 MG/DL (0.2-1.0); BLOOD UREA NITROGEN 5 MG/DL (7-18); CALCIUM LEVEL 8.5 MG/DL (8.5-10.1); CARBON DIOXIDE LEVEL 26 MEQ/L (21-32); CHLORIDE LEVEL 107 MEQ/L (98-107); CREATININE FOR GFR 0.54 MG/DL (0.55-1.02); GLOMERULAR FILTRATION RATE > 60.0 (>60); GLUCOSE, FASTING 94 MG/DL (70-105); POTASSIUM SERUM 3.5 MEQ/L (3.5-5.1); SODIUM LEVEL 142 MEQ/L (136-145); TOTAL PROTEIN 7.9 GM/DL (6.4-8.2)
[2016-10-14] MEDS ORDERED: ISOVUE-370 76% 100ML VIAL (Q9967) As Ordered ONE (18:55)
--- NOTE | 2016-10-14 19:40 | REPUSA ---
CLINICAL HISTORY: Abdominal pain. TECHNIQUE: Multiple axial, sagittal and coronal CT images were obtained through the abdomen and pelvi s after administration of intravenous contrast material. COMMENTS: The liver is of uniform attenuation without mass or defect. There is no intra or extrahepatic biliary ductal dilatation. The spleen is normal. The gallbladder is within normal limits. The pancreas is of normal contour and attenuation characteristics. There is no evidence of adrenal mass. Both kidneys demonstrate prompt and equal nephrograms. The kidneys are normal in size, shape and conf iguration. There is no evidence of renal or ureteral mass. No renal or ureteral calculi are identifie d. There is no hydroureter or hydronephrosis. No evidence for appendicitis. Note is made of diffuse diverticulosis noted involving descending colo n. There is marked inflammatory stranding noted adjacent to the proximal descending colon compatible with acute diverticulitis. There is no abscess or free air noted. No evidence for small or large b owel obstruction. There is no evidence of abdominal ascites or lymphadenopathy. There is no evidence of intrinsic or extrinsic bladder mass. There is no pelvic ascites or lymphadeno jose. Uterus and ovaries are normal. Images of the lung bases show no evidence of pleural or parenchymal mass. There are no pleural effusi ons. The bony structures are free of lytic or blastic lesions. IMPRESSION: Acute proximal descending diverticulitis. Thank you for your kind referral of this patient.
[2016-10-14] MEDS ORDERED: PERC5TAB12 PO (19:58)
[2016-10-14] MEDS ORDERED: CIPR-249 PO (19:58)
[2016-10-14] MEDS ORDERED: FLAG500T PO (19:58)
[2016-10-14] MEDS ORDERED: ZOFR4TAB3 PO (19:58)
[2016-10-14] MEDS ORDERED: CIPROFLOXACIN 500 MG TAB PO ONE (20:00)
[2016-10-14] MEDS ORDERED: metroNIDAZOLE (FLAGYL) 500 MG TAB PO ONE (20:00)
== END 2016-10-14 20:18 | disposition home or self-care (01) ==
LOC: M ED 14:40
DX: K57.32 Diverticulitis of large intestine without perforation or abscess without bleeding (principal); R50.9 Fever, unspecified; R11.0 Nausea; Z87.442 Personal history of urinary calculi; Z88.1 Allergy status to other antibiotic agents
CPT/HCPCS: 36415; 74177; 80048; 80076; 81001; 81025; 82150; 83605; 83690; 84703; 85025; 87040; 87086; 96361; 96374; 96375; 96376; 99284; J1885; J2405; Q9967

== ENCOUNTER 2016-12-15 06:00 | Emergency (ER) | payer OTHER ==
[~2016-12-15] VITALS: Ht 170.2 cm; Wt 77.0 kg
[~2016-12-15 06:00] MED LIST changes: +FLAG500T PO; +PERC5TAB12 PO; +ZOFR4TAB3 PO
[2016-12-15] MEDS ORDERED: NS 1,000 ML IV ONE (08:15)
[2016-12-15] MEDS ORDERED: MECLIZINE 25 MG TABLET PO ONE (08:15)
[2016-12-15] MEDS ORDERED: ONDANSETRON 4MG/2ML VIAL (J2405) IV ONE (08:15)
--- NOTE | 2016-12-15 08:31 | ECGEPIP ---
Stationary ECG Study [facility] - ED Test Date: 2016-12-15 Pat Name: JEFFERY KHAN Department: Room: - Gender: F Roller [employer]illet Mill: marina : 1990 Requested By: SARBJIT Barreto PA-C Order Number: [id number] Reading MD: Kathy Cortés Measurements Intervals [place] Rate: 63 P: 50 [place]: 185 QRS: 69 QRSD: 96 T: 28 QT: 399 QTc: 411 Interpretive Statements SINUS RHYTHM WITH SINUS ARRHYTHMIA SIMILAR 03/28/16 Electronically Signed On 12-15-2016 8:31:00 EDT by Kathy Cortés
[2016-12-15 09:59] LABS: BASO % 0.6 % (0.0-1.0); EOS % 0.6 % (0.0-3.0); IMMATURE GRANULOCYTE % 0.2 % (0-0); LYMPH # 1.7 10^3/uL (1.5-6.5); LYMPH % 26.8 % (24.0-44.0); MEAN CORPUSCULAR HEMOGLOBIN 22.9 pg (27.0-33.0); MEAN CORPUSCULAR HGB CONC 29.2 g/dl (32.0-36.5); MEAN CORPUSCULAR VOLUME 78.3 fl (80.0-96.0); MONO # 0.3 10^3/uL (0.0-0.8); MONO % 5.4 % (0.0-5.0); NEUTROPHILS # 4.1 10^3/uL (1.8-7.7); NEUTROPHILS % 66.4 % (36.0-66.0); PLATELET COUNT, AUTOMATED 264 10^3/uL (150-450); RED CELL DISTRIBUTION WIDTH 16.7 % (11.5-14.5); WHITE BLOOD COUNT 6.2 10^3/uL (4.0-10.0)
[2016-12-15 10:36] LABS: ERYTHROCYTE SEDIMENTATION RATE 29 mm/hr (0-20)
[2016-12-15 10:47] LABS: ALBUMIN 3.6 GM/DL (3.2-5.2); ALBUMIN/GLOBULIN RATIO 1.16 (1.00-1.93); ALKALINE PHOSPHATASE 46 U/L (45-117); ALT/SGPT 17 U/L (12-78); ANION GAP 6 MEQ/L (8-16); AST/SGOT 11 U/L (15-37); BILIRUBIN,TOTAL 0.2 MG/DL (0.2-1.0); BLOOD UREA NITROGEN 6 MG/DL (7-18); CALCIUM LEVEL 8.2 MG/DL (8.5-10.1); CARBON DIOXIDE LEVEL 25 MEQ/L (21-32); CHLORIDE LEVEL 111 MEQ/L (98-107); CREATININE FOR GFR 0.46 MG/DL (0.55-1.02); GLOMERULAR FILTRATION RATE > 60.0 (>60); GLUCOSE, FASTING 86 MG/DL (70-105); HCG, SERUM QUANTITATIVE < 1.0 MIU/ML; POTASSIUM SERUM 4.1 MEQ/L (3.5-5.1); SODIUM LEVEL 142 MEQ/L (136-145); TOTAL PROTEIN 6.7 GM/DL (6.4-8.2)
[2016-12-15 11:14] VITALS: BP 118/68
[2016-12-15] MEDS ORDERED: ZOFR4TAB3 PO (11:27)
[2016-12-15] MEDS ORDERED: MECL-68 PO (11:27)
== END 2016-12-15 11:51 | disposition home or self-care (01) ==
LOC: M ED 06:00
DX: R42 Dizziness and giddiness (principal); D64.9 Anemia, unspecified; K57.90 Diverticulosis of intestine, part unspecified, without perforation or abscess without bleeding; Z87.442 Personal history of urinary calculi; Z88.0 Allergy status to penicillin
CPT/HCPCS: 36415; 80053; 81001; 84443; 84702; 85025; 85652; 86140; 93000; 96361; 96374; 99284; J2405

== ENCOUNTER → 2017-04-08 | Outpatient (CLI) | payer OTHER ==
[2017-04-08 14:03] LABS: BASO # 0.1 10^3/uL (0.0-0.2); BASO % 0.6 % (0.0-1.0); EOS % 0.5 % (0.0-3.0); HEMATOCRIT 32.2 % (36.0-47.0); HEMOGLOBIN 9.3 g/dl (12.0-16.0); IMMATURE GRANULOCYTE % 0.1 % (0-3.0); LYMPH % 23.1 % (24.0-44.0); MEAN CORPUSCULAR HEMOGLOBIN 21.9 pg (27.0-33.0); MEAN CORPUSCULAR HGB CONC 28.9 g/dl (32.0-36.5); MEAN CORPUSCULAR VOLUME 75.9 fl (80.0-96.0); MONO # 0.5 10^3/uL (0.0-0.8); MONO % 5.8 % (0.0-5.0); NEUTROPHILS % 69.9 % (36.0-66.0); PLATELET COUNT, AUTOMATED 292 10^3/uL (150-450); RED BLOOD COUNT 4.24 10^6/uL (4.00-5.40); RED CELL DISTRIBUTION WIDTH 16.2 % (11.5-14.5); WHITE BLOOD COUNT 8.5 10^3/uL (4.0-10.0)
[2017-04-08 14:34] LABS: ALBUMIN 4.5 GM/DL (3.2-5.2); ALBUMIN/GLOBULIN RATIO 1.18 (1.00-1.93); ALKALINE PHOSPHATASE 59 U/L (45-117); ALT/SGPT 16 U/L (12-78); ANION GAP 9 MEQ/L (8-16); AST/SGOT 12 U/L (7-37); BILIRUBIN,TOTAL 0.3 MG/DL (0.2-1.0); BLOOD UREA NITROGEN 7 MG/DL (7-18); CALCIUM LEVEL 9.3 MG/DL (8.5-10.1); CARBON DIOXIDE LEVEL 27 MEQ/L (21-32); CHLORIDE LEVEL 105 MEQ/L (98-107); CREATININE FOR GFR 0.61 MG/DL (0.55-1.30); FERRITIN 2 NG/ML (8-252); GLOMERULAR FILTRATION RATE > 60.0 (>60); GLUCOSE, FASTING 86 MG/DL (70-100); IRON (FE) 31 UG/DL (50-170); LIPASE 137 U/L (73-393); POTASSIUM SERUM 3.7 MEQ/L (3.5-5.1); SODIUM LEVEL 141 MEQ/L (136-145); TOTAL PROTEIN 8.3 GM/DL (6.4-8.2)
== END ==
LOC: M LAB 13:20
DX: R10.9 Unspecified abdominal pain (principal)
CPT/HCPCS: 83540

== ENCOUNTER → 2017-04-13 | Outpatient (CLI) | payer OTHER ==
[~2017-04-13] MED LIST changes: -CIPR-249 PO; -FLAG500T PO; +GASTROGRAFIN SOLUTION 30ML (Q9963) As Ordered; -IBUP-1022 PO; +ISOVUE-370 76% 100ML VIAL (Q9967) As Ordered; -PERC5TAB12 PO; -ULTR50TA8 PO; -ZOFR4TAB3 PO
== END ==
LOC: M RAD 16:04
DX: K57.90 Diverticulosis of intestine, part unspecified, without perforation or abscess without bleeding (principal)
CPT/HCPCS: Q9963

== ENCOUNTER 2018-04-06 19:35 | Emergency (ER) | payer OTHER ==
[~2018-04-06] VITALS: Ht 170.2 cm; Wt 87.3 kg
[2018-04-06 19:35] VITALS: BP 135/65
[~2018-04-06 19:35] MED LIST changes: +CIPR-249 PO; +FLAG500T PO; -GASTROGRAFIN SOLUTION 30ML (Q9963) As Ordered; +IBUP-1022 PO; -ISOVUE-370 76% 100ML VIAL (Q9967) As Ordered; +MACR100C42 PO; +MECL-68 PO; +MIRA3350 PO; +PERC5TAB12 PO; +ULTR50TA8 PO; +ZOFR4TAB14 PO
== END 2018-04-06 20:24 | disposition left against medical advice (07) ==
LOC: M ED 19:35
DX: Z53.29 Procedure and treatment not carried out because of patient's decision for other reasons (principal)

== ENCOUNTER 2018-07-05 15:58 | Emergency (ER) | payer OTHER ==
[~2018-07-05] VITALS: Ht 172.7 cm; Wt 97.5 kg
[2018-07-05] MEDS ORDERED: hydrOXYzine 25 MG TAB PO STA (16:36)
[2018-07-05] MEDS ORDERED: IBUPROFEN 600 MG TAB PO ONE (16:45)
[2018-07-05 17:07] LABS: BASO % 0.3 % (0.0-1.0); EOS % 0.5 % (0.0-3.0); HEMATOCRIT 32.6 % (36.0-47.0); HEMOGLOBIN 10.3 g/dl (12.0-15.5); LYMPH # 1.8 10^3/uL (1.5-6.5); LYMPH % 30.1 % (24.0-44.0); MEAN CORPUSCULAR HEMOGLOBIN 26.6 pg (27.0-33.0); MEAN CORPUSCULAR HGB CONC 31.6 g/dl (32.0-36.5); MEAN CORPUSCULAR VOLUME 84.2 fl (80.0-96.0); MONO # 0.4 10^3/uL (0.0-0.8); MONO % 6.4 % (0.0-5.0); NEUTROPHILS # 3.8 10^3/uL (1.8-7.7); NEUTROPHILS % 62.5 % (36.0-66.0); PLATELET COUNT, AUTOMATED 243 10^3/uL (150-450); RED BLOOD COUNT 3.87 10^6/uL (4.00-5.40); WHITE BLOOD COUNT 6.1 10^3/uL (4.0-10.0)
--- NOTE | 2018-07-05 17:11 | REP ---
CHEST, SINGLE VIEW: COMPARISON: 04/24/2014 There is mild cardiomegaly. Mediastinal silhouette is unchanged. No acute infiltrates are seen. Right hemidiaphragm is slightly elevated. IMPRESSION: No acute infiltrate. Mild cardiomegaly. Electronically Signed by Keegan Marroquin MD 07/06/2018 04:08 P
[2018-07-05 17:30] LABS: BLOOD UREA NITROGEN 11 MG/DL (7-18); CALCIUM LEVEL 8.7 MG/DL (8.5-10.1); CARBON DIOXIDE LEVEL 27 MEQ/L (21-32); CHLORIDE LEVEL 109 MEQ/L (98-107); CK-MB VALUE MASS < 1.0 NG/ML (<3.6); CPK CREATINE PHOSPHOKINASE 83 U/L (26-192); CREATININE FOR GFR 0.69 MG/DL (0.55-1.30); GLOMERULAR FILTRATION RATE > 60.0 (>60); GLUCOSE, FASTING 93 MG/DL (70-100); POTASSIUM SERUM 3.7 MEQ/L (3.5-5.1); SODIUM LEVEL 142 MEQ/L (136-145); TROPONIN I < 0.02 NG/ML (< 0.10)
[2018-07-05 18:25] VITALS: BP 131/78
--- NOTE | 2018-07-05 20:36 | ECGEPIP ---
Stationary ECG Study [facility] - ED Test Date: 2018-07-05 Pat Name: JEFFERY KHAN Department: Room: - Gender: F Environmental Quality Analyst: JKyle : 1990 Requested By: JACQUES Dang Order Number: [id number] Reading MD: Kathy Cortés Measurements Intervals [place] Rate: 69 P: 37 ME: 160 QRS: 47 QRSD: 110 T: 14 QT: 389 QTc: 418 Interpretive Statements SINUS RHYTHM WITH SINUS ARRHYTHMIA SIMILAR 12/15/16 Electronically Signed On 07-05-2018 20:36:28 EDT by Kathy Cortés
== END 2018-07-05 18:26 | disposition home or self-care (01) ==
LOC: M ED 15:58
DX: R07.89 Other chest pain (principal); Z88.0 Allergy status to penicillin; Z88.8 Allergy status to other drugs, medicaments and biological substances

== ENCOUNTER → 2019-11-09 | Outpatient (REF) | payer OTHER, MEDICAID ==
[~2019-11-09] MED LIST changes: -MECL-68 PO; +MECL1TAB31 PO
[2019-11-09 18:32] LABS: BASO % 0.5 % (0.0-1.0); EOS % 0.5 % (0.0-3.0); HEMATOCRIT 34.4 % (36.0-47.0); HEMOGLOBIN 10.5 g/dl (12.0-15.5); LYMPH # 1.6 10^3/uL (1.5-5.0); LYMPH % 20.3 % (24.0-44.0); MEAN CORPUSCULAR HEMOGLOBIN 26.6 pg (27.0-33.0); MEAN CORPUSCULAR HGB CONC 30.5 g/dl (32.0-36.5); MEAN CORPUSCULAR VOLUME 87.1 fl (80.0-96.0); MONO # 0.4 10^3/uL (0.0-0.8); MONO % 5.6 % (0.0-5.0); NEUTROPHILS # 5.8 10^3/uL (1.5-8.5); NEUTROPHILS % 72.8 % (36.0-66.0); PLATELET COUNT, AUTOMATED 258 10^3/uL (150-450); RED BLOOD COUNT 3.95 10^6/uL (4.00-5.40); WHITE BLOOD COUNT 7.9 10^3/uL (4.0-10.0)
[2019-11-09 20:39] LABS: HEMOGLOBIN A1c 5.5 %
[2019-11-09 23:14] LABS: ALBUMIN 4.1 GM/DL (3.2-5.2); ALT/SGPT 17 U/L (12-78); BILIRUBIN,TOTAL 0.3 MG/DL (0.2-1.0); BLOOD UREA NITROGEN 9 MG/DL (7-18); CALCIUM LEVEL 9.1 MG/DL (8.5-10.1); CARBON DIOXIDE LEVEL 29 MEQ/L (21-32); CHLORIDE LEVEL 109 MEQ/L (98-107); CHOLESTEROL LEVEL 188 MG/DL (<200); CHOLESTEROL RISK RATIO 4.372 (<5); CREATININE FOR GFR 0.75 MG/DL (0.55-1.30); FREE T4 1.01 NG/DL (0.76-1.46); GLOMERULAR FILTRATION RATE > 60.0 (>60); GLUCOSE, FASTING 98 MG/DL (70-100); HDL CHOLESTEROL 43 MG/DL (>40); LDL CHOLESTEROL 123 MG/DL (<100); NON-HDL-C 145 MG/DL; SODIUM LEVEL 142 MEQ/L (136-145); TOTAL PROTEIN 8.1 GM/DL (6.4-8.2); TRIGLYCERIDES LEVEL 108 MG/DL (<150)
[2019-11-12 10:44] LABS: TOTAL 25(OH) VITAMIN D 20.3 NG/ML (30.0-100.0)
== END ==
LOC: M LAB REF 17:03
PROVIDERS: ATTEND Nurse Practitioner Family
DX: Z13.9 Encounter for screening, unspecified (principal); F41.8 Other specified anxiety disorders; R10.9 Unspecified abdominal pain; R42 Dizziness and giddiness; D64.9 Anemia, unspecified; K59.00 Constipation, unspecified; K57.92 Diverticulitis of intestine, part unspecified, without perforation or abscess without bleeding; E66.09 Other obesity due to excess calories

== ENCOUNTER → 2019-12-04 | Outpatient (REF) | payer OTHER, MEDICAID | LOC: M LAB REF 18:41 | PROVIDERS: ATTEND Nurse Practitioner Family | DX: Z12.4 Encounter for screening for malignant neoplasm of cervix (principal) ==

== ENCOUNTER 2021-04-21 15:28 | Outpatient (CLI) | payer OTHER, MEDICAID ==
[~2021-04-21] VITALS: Ht 170.2 cm; Wt 107.0 kg
[2021-04-21 15:45] VITALS: BP 138/69
[2021-04-21] MEDS ORDERED: PRENTAB9 PO (16:04)
== END 2021-04-21 17:15 | disposition home or self-care (01) ==
LOC: M LDO 15:28
PROVIDERS: ATTEND Specialist
DX: O26.892 Other specified pregnancy related conditions, second trimester (principal); R10.2 Pelvic and perineal pain; O26.73 Subluxation of symphysis (pubis) in the puerperium; O34.219 Maternal care for unspecified type scar from previous cesarean delivery; Z3A.25 25 weeks gestation of pregnancy

== ENCOUNTER 2021-06-22 14:29 | Emergency (ER) | payer MEDICAID, OTHER ==
[~2021-06-22] VITALS: Ht 170.2 cm; Wt 109.1 kg
[~2021-06-22 14:29] MED LIST changes: +PRENTAB9 PO
[2021-06-22 14:30] VITALS: BP 146/70
[2021-06-22] MEDS ORDERED: VITA500T9 (15:00)
[2021-06-22] MEDS ORDERED: FERR325T3 PO (15:00)
[2021-06-22] MEDS ORDERED: COLA100C5 PO (15:41)
== END 2021-06-22 15:24 | disposition admitted as inpatient to this hospital (09) ==
LOC: M ED 14:29
DX: R42 Dizziness and giddiness (principal); Z88.0 Allergy status to penicillin; Z88.1 Allergy status to other antibiotic agents; Z3A.35 35 weeks gestation of pregnancy

== ENCOUNTER → 2022-12-07 | Outpatient (CLI) | payer OTHER ==
[~2022-12-07] MED LIST changes: +COLA100C5 PO; +FERR325T3 PO; +MECL-209 PO; -MECL1TAB31 PO; +VITA500T9
[2022-12-07 14:26] LABS: FOLLICLE STIMULATING HORMONE 5.4 mIU/ML; LUTEINIZING HORMONE 7.2 mIU/ML; PROLACTIN 9.04 NG/ML
[2022-12-07 14:31] LABS: ESTRADIOL 188.6 PG/ML; PROGESTERONE 0.72 NG/ML
[2022-12-07 14:49] LABS: HIV 1&2 SCREEN NEGATIVE (NEGATIVE)
[2022-12-07 14:58] LABS: HEPATITIS B CORE ANTIBODY IGM NEGATIVE (NEGATIVE); HEPATITIS C VIRUS ABY INDEX 0.05 INDEX (<0.8)
[2022-12-07 15:32] LABS: GC DNA AMPLIFICATION NEGATIVE (NEGATIVE)
[2022-12-07 15:33] LABS: GC DNA AMPLIFICATION NEGATIVE (NEGATIVE)
== END ==
LOC: M PLALAB 10:30
PROVIDERS: ATTEND Nurse Practitioner Family
DX: Z11.3 Encounter for screening for infections with a predominantly sexual mode of transmission (principal)

== ENCOUNTER → 2023-01-11 | Outpatient (CLI) | payer OTHER | LOC: M WHC 08:51 | PROVIDERS: ATTEND Nurse Practitioner Family | DX: N63.10 Unspecified lump in the right breast, unspecified quadrant (principal) ==

== ENCOUNTER → 2023-07-13 | Outpatient (CLI) | payer OTHER | LOC: M WHC 09:45 | PROVIDERS: ATTEND Nurse Practitioner Family | DX: R92.8 Other abnormal and inconclusive findings on diagnostic imaging of breast (principal) ==

== ENCOUNTER → 2023-08-01 | Outpatient (CLI) | payer OTHER ==
[2023-08-01 15:35] LABS: BASO # 0.1 10^3/uL (0.0-0.2); BASO % 0.6 % (0.0-1.0); EOS % 0.5 % (0.0-3.0); HEMATOCRIT 33.8 % (36.0-47.0); HEMOGLOBIN 9.8 g/dl (12.0-15.5); LYMPH # 1.9 10^3/uL (1.5-5.0); LYMPH % 21.6 % (24.0-44.0); MEAN CORPUSCULAR HEMOGLOBIN 23.2 pg (27.0-33.0); MEAN CORPUSCULAR VOLUME 80.1 fl (80.0-96.0); MONO # 0.5 10^3/uL (0.0-0.8); MONO % 5.5 % (2.0-8.0); NEUTROPHILS # 6.4 10^3/uL (1.5-8.5); NEUTROPHILS % 71.6 % (36.0-66.0); PLATELET COUNT, AUTOMATED 325 10^3/uL (150-450); RED BLOOD COUNT 4.22 10^6/uL (4.00-5.40); WHITE BLOOD COUNT 8.9 10^3/uL (4.0-10.0)
[2023-08-01 15:43] LABS: ALBUMIN 3.8 G/DL (3.2-5.2); ALKALINE PHOSPHATASE 73 U/L (46-116); ALT/SGPT 20 U/L (7.0-40); AST/SGOT 9 U/L (<34); BILIRUBIN,TOTAL 0.2 MG/DL (0.3-1.2); BLOOD UREA NITROGEN 10 MG/DL (9-23); CALCIUM LEVEL 8.8 MG/DL (8.5-10.1); CARBON DIOXIDE LEVEL 24 MMOL/L (20-31); CHLORIDE LEVEL 109 MMOL/L (98-107); CREATININE FOR GFR 0.56 MG/DL (0.55-1.30); GLOMERULAR FILTRATION RATE > 60.0 (>60); GLUCOSE, FASTING 102 MG/DL (60-100); POTASSIUM SERUM 4.3 MMOL/L (3.5-5.1); SODIUM LEVEL 140 MMOL/L (136-145); TOTAL PROTEIN 7.6 G/DL (5.7-8.2)
[2023-08-01 15:45] LABS: FREE T4 0.87 NG/DL (0.89-1.76)
[2023-08-01 16:13] LABS: HEMOGLOBIN A1c 5.4 % (4.0-6.0)
[2023-08-01 16:50] LABS: Trichomonas vaginalis (AMP) NOT DETECTED (NEGATIVE)
[2023-08-01 17:14] LABS: GC DNA AMPLIFICATION NEGATIVE (NEGATIVE)
[2023-08-03 13:47] LABS: HPV APTIMA Not Detected (Not Detected)
== END ==
LOC: M PLALAB 12:05
PROVIDERS: ATTEND Nurse Practitioner Family
DX: Z12.4 Encounter for screening for malignant neoplasm of cervix (principal); N92.0 Excessive and frequent menstruation with regular cycle

== ENCOUNTER → 2023-08-05 | Outpatient (CLI) | payer OTHER ==
[2023-08-05 16:02] LABS: FERRITIN 3.1 NG/ML (7.3-270.7)
[2023-08-05 16:03] LABS: PERCENT SATURATION 5.7 % (13.2-45.0)
== END ==
LOC: M PLALAB 12:17
PROVIDERS: ATTEND Nurse Practitioner Family
DX: N92.0 Excessive and frequent menstruation with regular cycle (principal)

== ENCOUNTER → 2023-08-24 | Outpatient (CLI) | payer OTHER | LOC: M WHC 10:08 | PROVIDERS: ATTEND Nurse Practitioner Family | DX: N92.0 Excessive and frequent menstruation with regular cycle (principal) ==

== ENCOUNTER → 2023-12-06 | Outpatient (CLI) | payer OTHER ==
[2023-12-06 14:38] LABS: BASO # 0.1 10^3/uL (0.0-0.2); BASO % 0.6 % (0.0-1.0); EOS # 0.1 10^3/uL (0.0-0.5); EOS % 0.7 % (0.0-3.0); HEMATOCRIT 37.3 % (36.0-47.0); HEMOGLOBIN 11.4 g/dl (12.0-15.5); LYMPH % 23.4 % (24.0-44.0); MEAN CORPUSCULAR HEMOGLOBIN 25.7 pg (27.0-33.0); MEAN CORPUSCULAR HGB CONC 30.6 g/dl (32.0-36.5); MONO # 0.6 10^3/uL (0.0-0.8); MONO % 7.1 % (2.0-8.0); NEUTROPHILS # 5.8 10^3/uL (1.5-8.5); NEUTROPHILS % 67.7 % (36.0-66.0); PLATELET COUNT, AUTOMATED 301 10^3/uL (150-450); RED BLOOD COUNT 4.44 10^6/uL (4.00-5.40); WHITE BLOOD COUNT 8.6 10^3/uL (4.0-10.0)
[2023-12-06 15:08] LABS: PERCENT SATURATION 10.3 % (13.2-45.0)
== END ==
LOC: M PLALAB 10:58
PROVIDERS: ATTEND Nurse Practitioner Family
DX: D50.9 Iron deficiency anemia, unspecified (principal)

== ENCOUNTER 2023-12-30 11:08 | Outpatient (CLI) | payer OTHER ==
[~2023-12-30] VITALS: Ht 170.2 cm; Wt 102.3 kg
[2023-12-30 11:00] VITALS: BP 168/72; O2SAT 100
[~2023-12-30 11:08] MED LIST changes: +ALBUTEROL SULFATE 2.5MG/0.5ML INH NEB SOLN INH PRN; +EPINEPHrine INJ 1 MG/ML 1ML AMP IM PRN; +diphenhydrAMINE 50MG/ML VIAL IV PRN; +methylPREDNISolone 125MG 2ML VIAL IV PRN
[2023-12-30] MEDS: ACETAMINOPHEN 325 MG TAB PO ONE (11:20)
[2023-12-30] MEDS: diphenhydrAMINE 25MG CAP PO ONE (11:20)
[2023-12-30] MEDS: FERRIC CARBOXYMALTOSE 750 MG (VIAL MATE) IN 100ML NS IV ONE (11:48)
[2023-12-30 12:48] VITALS: BP 136/68; O2SAT 97
== END 2023-12-30 12:50 ==
LOC: M INFU 11:08
PROVIDERS: ATTEND Nurse Practitioner Family
DX: D64.9 Anemia, unspecified (principal); Z88.1 Allergy status to other antibiotic agents
CPT/HCPCS: 96365; J1439